=== PATIENT | male | born 1960 | race Caucasian/White ===

== ENCOUNTER → 2016-12-16 | Day surgery (SDC) | payer OTHER ==
[~2016-12-16] MED LIST: ACETAMINOPHEN/HYDROcodone 325 MG/5 MG TAB ONE; BUPIVACAINE/EPINEPHRINE 0.5% 50 ML VIAL ONE; KETOROLAC TROMETHAMINE 30 MG/ML (IVP) VIAL IV PUSH ONE; LACTATED RINGER'S 1000 ML INJ 1,000 ML ONE; MIDAZOLAM HCL 2 MG/2 ML VIAL ONE; ONDANSETRON HCL 4 MG/2 ML VIAL IV PUSH ONE; PROPOFOL 200 MG/20 ML AMP IV ONE; ceFAZolin INJ 1,000 MG VIAL ONE
--- NOTE | 2016-12-18 15:23 | MP ---
cc: ZOINA GOMEZ M.D. DATE OF SURGERY: 12/16/2016. PREOPERATIVE DIAGNOSIS: Left knee medial meniscus tear and medial compartment chondromalacia. POSTOPERATIVE DIAGNOSIS: Left knee medial meniscus tear and medial compartment chondromalacia. OPERATION: Left knee arthroscopic partial medial meniscectomy. SURGEON: Zonia Gomez M.D. HEALTH CARE COORDINATOR: Staff. ANESTHETIC: General. COMPLICATIONS: None known. INDICATIONS FOR THE PROCEDURE: Cayden Steven is a 56-year-old male with persistent medial sided left knee pain. MRI scan reveals a medial meniscus tear. He now presents for arthroscopic surgery. The risks and benefits were thoroughly discussed and a detailed informed consent was obtained. DESCRIPTION OF THE PROCEDURE IN DETAIL: The patient was brought into the operating room. He was placed under general anesthetic. The left lower extremity was prepped and draped in the usual sterile fashion. IV antibiotics were given. A time out was completed. Marcaine was injected about the inferolateral portal and a blunt trocar was used to introduce the cannula. The knee was insufflated. The patellofemoral joint showed healthy-appearing cartilage of the patella and mild fissuring potentially within the trochlear groove. The lateral compartment appeared normal. The medial compartment showed chondromalacia diffuse involving the medial femoral condyle and revealed unstable tearing involving the posterior horn of the medial meniscus involving 50% to 60% depth of the meniscus. This also involved the mid-body of the meniscus. We proceeded with arthroscopic partial medial meniscectomy using a combination of basket forceps and arthroscopic shaver and then switched over to a switching stick and brought the arthroscopic equipment in from the lateral portal to smooth and fine-tune the transition from the anterior horn to t he body to the posterior horn. It should also be noted that chondroplasty was performed on the weightbearing portion of the medial femoral condyle. Arthroscopic photographs obtained showing the pre- and post- results, we switched back to the lateral viewing portal and repeated a diagnostic arthroscopy and confirmed no loose bodies. The arthroscopic equipment was removed. Marcaine was injected. Steri-Strips were applied. Sterile dressing was applied. The patient was awoken and returned to the recovery room in stable condition. MD ROXI Carballo/MING /1:17 PM /3:13 PM
== END | disposition home or self-care (01) ==
LOC: ESDC 10:48
PROVIDERS: ATTEND Orthopaedic Surgery Sports Medicine
DX: S83.242A Other tear of medial meniscus, current injury, left knee, initial encounter (principal); M94.262 Chondromalacia, left knee
CPT/HCPCS: 01400; 29881; J0690; J1885; J2250; J2405; J3010; J7120